=== PATIENT | female | born 1960 | race Caucasian/White ===

== ENCOUNTER → 2021-05-16 | Outpatient (CLI) | payer BC | LOC: MC.RAD 13:51 | DX: R92.0 Mammographic microcalcification found on diagnostic imaging of breast (principal) ==

== ENCOUNTER → 2021-05-31 | Outpatient (CLI) | payer BC | LOC: MC.RAD 05-24 07:00 | DX: R92.1 Mammographic calcification found on diagnostic imaging of breast (principal); R92.0 Mammographic microcalcification found on diagnostic imaging of breast; Z98.82 Breast implant status ==